=== PATIENT | male | born 1950 | race Caucasian/White ===

== ENCOUNTER 2016-12-10 04:43 | Emergency (ER) | payer OTHER ==
[~2016-12-10] VITALS: Ht 167.6 cm; Wt 78.2 kg
[~2016-12-10 04:43] MED LIST: ASPIR 8181 M1 PO; ATORVASTATIN CA40 MG PO; AUGMENTIN875 MG PO; BENAZEPRIL HCL20 MG PO; CLEAR EYES REDN30 M1 BOTH EYES; DAPSONE25 MG PO; ENDOCET 5-3251 EACH PO; ERY-TAB500 MG PO; IRON325 MG PO; LEVAQUIN500 MG PO; METOPROLOL TART25 MG PO; NITROGLYCERIN0.4 MG SL; NYSTATIN-TRIAMC15 GM TP; OMEPRAZOLE40 M1 PO; PLAVIX75 MG PO; PRILOSEC20 MG PO; PRILOSEC40 MG PO; VERAPAMIL HCL120 M1 PO; ZOFRAN4 MG PO
[2016-12-10] MEDS ORDERED: ZANAFLEX2 MG PO (06:05)
[2016-12-10] MEDS ORDERED: LIDODERM 5% P1 PATCH TD (06:05)
[2016-12-10 06:26] VITALS: BP 155/73
== END 2016-12-10 06:27 | disposition home or self-care (01) ==
LOC: EME 04:43
DX: S16.1XXA Strain of muscle, fascia and tendon at neck level, initial encounter (principal); S46.811A Strain of other muscles, fascia and tendons at shoulder and upper arm level, right arm, initial encounter; X50.9XXA Other and unspecified overexertion or strenuous movements or postures, initial encounter; Y92.59 Other trade areas as the place of occurrence of the external cause; Y99.0 Civilian activity done for income or pay; I10 Essential (primary) hypertension; Z87.891 Personal history of nicotine dependence
CPT/HCPCS: 99281; 99284

== ENCOUNTER 2016-12-11 04:23 | Emergency (ER) | payer OTHER ==
[~2016-12-11] VITALS: Ht 167.6 cm; Wt 78.3 kg
[~2016-12-11 04:23] MED LIST changes: +LIDODERM 5% P1 PATCH TD; +ZANAFLEX2 MG PO
[2016-12-11 06:41] VITALS: BP 145/75
== END 2016-12-11 06:42 | disposition home or self-care (01) ==
LOC: EME 04:23
DX: S16.1XXA Strain of muscle, fascia and tendon at neck level, initial encounter (principal); K21.9 Gastro-esophageal reflux disease without esophagitis; J45.909 Unspecified asthma, uncomplicated; Z95.1 Presence of aortocoronary bypass graft; Z87.891 Personal history of nicotine dependence
CPT/HCPCS: 99281; 99284